=== PATIENT | female | born 1965 | race Caucasian/White ===

== ENCOUNTER 2018-09-05 09:10 | Day surgery (SDC) | payer BC ==
[2018-09-04 11:43] VITALS: BMI 24.9
[2018-09-05] MEDS ORDERED: PROPOFOL 200 MG/20 ML VIAL ONE (09:20)
[2018-09-05] MEDS ORDERED: Ondansetron PF 4 MG/2 ML Vial ONE (09:20)
[2018-09-05] MEDS ORDERED: Lidocaine 1% PF 5 ML VIAL ONE (09:20)
[2018-09-05] MEDS ORDERED: Dexamethasone 20 MG/5 ML VIAL ONE (09:20)
[2018-09-05] MEDS ORDERED: Ketorolac Tromethamine 30 MG/ML VIAL ONE (09:20)
[2018-09-05] MEDS ORDERED: Metoclopramide HCl 10 MG/2 ML VIAL ONE (09:20)
[2018-09-05] MEDS ORDERED: Gelfilm 1 EA Packet ONE (11:54)
[2018-09-05] MEDS ORDERED: Lidocaine 2% Jelly 5 ML TUBE ONE (11:54)
[2018-09-05] MEDS ORDERED: Bupivacaine/Epinephrine 0.25% 30 ML VIAL ONE (11:54)
[2018-09-05] MEDS ORDERED: Lidocaine 2% PF 5 ML VIAL ONE (11:55)
[2018-09-05] MEDS ORDERED: Fentanyl 100 MCG/2 ML VIAL ONE (12:06)
--- NOTE | 2018-09-06 13:57 | OP ---
DATE OF PROCEDURE: 09/05/2018 PREOPERATIVE DIAGNOSES: External and internal hemorrhoids. POSTOPERATIVE DIAGNOSES: External and internal hemorrhoids. PROCEDURE PERFORMED: External and internal hemorrhoidectomy x2. ANESTHESIA: General. ESTIMATED BLOOD LOSS: Minimal. COMPLICATIONS: None. DESCRIPTION OF PROCEDURE: The patient was taken to the operating room and laid supine on the operating room table. After general anesthetic was obtained, she was placed in lithotomy position. Her perineal and anal area were all prepped and draped in a sterile fashion. Her two external and internal hemorrhoids are removed by sharply incising the mucosa and then using the LigaSure. No sutures were needed. There was no ongoing bleeding. The anal canal was packed with Gelfoam and lidocaine jelly. This hemorrhoids were sent to [facility] for final diagnosis. The external sphincter muscle was avoided and not injured. The patient was sent to [facility] in stable condition. All instrument counts, needle counts, and lap counts were correct. Job ID: [id number]
== END 2018-09-05 14:35 | disposition home or self-care (01) ==
LOC: SDC 09:10
PROVIDERS: ATTEND Surgery
PROC: 06LY0ZC Occlusion of Hemorrhoidal Plexus, Open Approach (ICD-10-PCS; principal; 2018-09-05)
DX: K64.8 Other hemorrhoids (principal); K64.4 Residual hemorrhoidal skin tags; Z90.89 Acquired absence of other organs; Z91.018 Allergy to other foods; Z98.890 Other specified postprocedural states
CPT/HCPCS: 88304; J1100; J1885; J2001; J2405; J2704; J2765; J3010